=== PATIENT | male | born 1980 | race African-American/Black ===

== ENCOUNTER 2021-04-25 13:27 | Emergency (ER) | payer MEDICARE ==
[~2021-04-25] VITALS: Ht 182.9 cm; Wt 90.3 kg
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
[2021-04-25] MEDS ORDERED: IBUPROFEN 200 MG TABLET. PO ONE (14:00)
--- NOTE | 2021-04-25 14:52 | RAD ---
XR FOREARM_RIGHT 2 VIEWS, XR ELBOW COMPLETE_RIGHT 3+ VIEWS, XR RT WRIST 3VIEWS Clinical indications: Reason: Pain after fall/limited of range of motion / Spl. Instructions: / Hist ory: Right elbow: No joint effusion is seen. No acute fracture or dislocation or osteolytic process is gaby dent. There is mild degenerative spurring of the olecranon trochlear joint compartment. There is a tr action spur of the medial epicondyle. Right forearm: No acute fracture or dislocation or lytic process is seen. Right wrist: No acute fracture or dislocation or lytic process is seen. The scaphoid bone is intact. IMPRESSION: No acute osseous abnormality is evident. Electronically signed by: Wei Alvarado MD (04/25/2021 2:50 PM) [id number]
[2021-04-25 15:30] VITALS: BP 128/76
== END 2021-04-25 15:23 | disposition home or self-care (01) ==
LOC: ER 13:27
DX: S50.11XA Contusion of right forearm, initial encounter (principal); S50.01XA Contusion of right elbow, initial encounter; M25.531 Pain in right wrist; W11.XXXA Fall on and from ladder, initial encounter; Y93.89 Activity, other specified; Y92.89 Other specified places as the place of occurrence of the external cause; Y99.8 Other external cause status
CPT/HCPCS: 73080; 73090; 73110; 99284; A4565; A6450